=== PATIENT | female | born 1955 | race Two or more races ===

== ENCOUNTER 2024-10-02 21:59 | Inpatient (IN) | payer MEDICARE, MEDICAID ==
[~2024-10-02] VITALS: Ht 170.2 cm; Wt 85.3 kg
[2024-10-02 23:00] LABS: PLATELET COUNT (AUTO) 405 K/uL (150-450); RED BLOOD CELL COUNT(AUTO) 2.43 MIL/uL (4.0-5.2); RED CELL DISTRIBUTION WIDTH 17.6 % (11.5-15.0); WHITE BLOOD COUNT (AUTO) 8.4 K/uL (4.3-11.0)
[2024-10-02 23:29] LABS: ASPARTATE AMINOTRANSFERASE 27 U/L (15-37); CALCIUM, SERUM 7.1 mg/dL (8.5-10.1); CREATININE 4.5 mg/dL (0.6-1.3); LACTIC ACID 1.5 mmol/L (0.4-2.0); SODIUM SERUM 132 mmol/L (136-145); TOTAL PROTEIN, SERUM 6.8 g/dL (6.4-8.2)
[2024-10-02 23:55] LABS: APPEARANCE,URINE CLOUDY (CLEAR); BLOOD, URINE 1+ Ery/uL (NEGATIVE); LEUKOCYTE ESTERASE ,URINE 2+ (NEGATIVE); NITRITE, URINE NEGATIVE (NEGATIVE); UGLUCOSE NEGATIVE (NEGATIVE)
[2024-10-02 23:55] LABS: UREA NITROGEN, BLOOD 88 mg/dL (7-18)
[2024-10-03] LABS: INR 1.08 (0.91-1.10)
[2024-10-03 00:02] LABS: ADD URINE CULTURE YES; SQUAMOUS EPITHELIAL CELL,UR Few /HPF (None Seen)
[2024-10-03] MEDS: IV NS 0.9% 1,000 ML BAG IV ONE (00:07)
[2024-10-03] MEDS ORDERED: CEFTRIAXONE 1GM BAG (ER ONLY) 50 ML IV ONE (01:42)
[2024-10-03] MEDS ORDERED: PANTOPRAZOLE 40 MG VIAL ONE (01:43)
[2024-10-03] MEDS: CEFTRIAXONE 1 G in IV D5W 50 ML IV ONE (01:51)
[2024-10-03] MEDS: PANTOPRAZOLE 80 MG in IV NS 0.9% 500 ML IV ONE (01:52)
[2024-10-03] MEDS ORDERED: ACETAMINOPHEN 325 MG TABLET PO PRN (02:00)
[2024-10-03] MEDS ORDERED: Z GUARD REMEDY 4 OZ OINT TP PRN (02:00)
[2024-10-03] MEDS ORDERED: MAGNESIUM HYDROXIDE 30 ML UDC PO PRN (02:00)
[2024-10-03] MEDS ORDERED: MAG HYDROX/AL HYDROX/SIMETH 30 ML UDC PO PRN (02:00)
[2024-10-03] MEDS ORDERED: ZOLPIDEM TARTRATE 5 MG TABLET PO PRN (02:00)
[2024-10-03] MEDS: PANTOPRAZOLE 40 MG VIAL IV SCH ×2 (02:06→08:28)
[2024-10-03 02:22] LABS: BASOPHILS % (MANUAL) 0 % (0.0-2.0); EOSINOPHILS % (MANUAL) 5 % (0-4); LYMPHOCYTES % (MANUAL) 20 % (16-48); MONOCYTES % (MANUAL) 14 % (0-11.0); NEUTROPHILS % (MANUAL) 61 (42-76); PLATELET ESTIMATE ADEQUATE
[2024-10-03 04:00] VITALS: BP 117/68; TEMP 98.4; O2SAT 99
[2024-10-03 08:00] VITALS: BP 120/66; TEMP 97.7; O2SAT 98
[2024-10-03 12:00] VITALS: BP 123/72; TEMP 97.5; O2SAT 97
[2024-10-03] MEDS: ONDANSETRON HCL/PF 4 MG/2 ML VIAL IVP PRN (12:41)
[2024-10-03 16:00] VITALS: BP 134/83; TEMP 97.9; O2SAT 98
[2024-10-04] MEDS ORDERED: CEFTRIAXONE 1 G in IV D5W 50 ML IV SCH (02:00)
== END 2024-10-03 19:08 | disposition short-term general hospital (02) | DRG 640 ==
LOC: ER 22:00 → TELE1 10-03 01:34
PROVIDERS: ADMIT Internal Medicine; ATTEND Internal Medicine
PROC: 30233N1 Transfusion of Nonautologous Red Blood Cells into Peripheral Vein, Percutaneous Approach (ICD-10-PCS; principal; 2024-10-03)
DX: E86.1 Hypovolemia (principal); E43 Unspecified severe protein-calorie malnutrition; N18.6 End stage renal disease; I13.2 Hypertensive heart and chronic kidney disease with heart failure and with stage 5 chronic kidney disease, or end stage renal disease; N39.0 Urinary tract infection, site not specified; J96.10 Chronic respiratory failure, unspecified whether with hypoxia or hypercapnia; I50.9 Heart failure, unspecified; Z99.2 Dependence on renal dialysis; D50.9 Iron deficiency anemia, unspecified; E11.40 Type 2 diabetes mellitus with diabetic neuropathy, unspecified; E11.22 Type 2 diabetes mellitus with diabetic chronic kidney disease; E11.51 Type 2 diabetes mellitus with diabetic peripheral angiopathy without gangrene; L97.519 Non-pressure chronic ulcer of other part of right foot with unspecified severity; E11.621 Type 2 diabetes mellitus with foot ulcer; Z99.81 Dependence on supplemental oxygen; E88.09 Other disorders of plasma-protein metabolism, not elsewhere classified; E11.65 Type 2 diabetes mellitus with hyperglycemia; E87.1 Hypo-osmolality and hyponatremia; I95.89 Other hypotension; Z88.8 Allergy status to other drugs, medicaments and biological substances; R34 Anuria and oliguria
CPT/HCPCS: 36415; 71045-TC; 80048-TC; 80076-TC; 81001; 83605-TC; 84484-TC; 85025-TC; 85027-TC; 85730-TC; 86850-TC; 87040-TC; 87086-TC; A6213; G0378; J0696; J2405; J2470; J7030; J7040; J7060; P9016